=== PATIENT | male | born 1950 | race Caucasian/White ===

== ENCOUNTER 2022-08-08 09:05 | Emergency (ER) | payer OTHER ==
[2022-08-08 09:12] VITALS: TEMP 98.2; BMI 19.9
[2022-08-08 10:19] LABS: BASO % 0.7 % (0-2.0); EOS % 6.2 % (0-4.5); HEMATOCRIT 44.3 % (35.4-49); HEMOGLOBIN 14.9 GM/dL (11.7-16.9); LYMPH % 8.2 % (8-40); MCH 30.9 pg (25.7-33.7); MCHC 33.7 g/dl (32.0-35.9); MEAN CELL VOLUME 91.6 fl (80-96); MEAN PLT VOLUME 8.7 fl (7.5-11.1); MONO % 8.6 % (3.8-10.2); NEUT % 76.3 % (42.8-82.8); PLATELET COUNT 196 10^3/uL (134-434); RBC 4.84 M/mm3 (4.00-5.60); RDW 14.1 % (11.9-15.9); WHITE BLOOD COUNT 8.9 K/mm3 (4.0-10.0)
[2022-08-08 10:26] LABS: INR 1.02 (0.83-1.09); PROTHROMBIN TIME (PATIENT) 11.8 SEC (9.7-13.0)
[2022-08-08 10:29] LABS: ACTIVATED PTT 25.4 SECONDS (25.2-36.5)
[2022-08-08 10:50] LABS: CALCIUM 8.8 mg/dL (8.5-10.1)
[2022-08-08 10:51] LABS: ALBUMIN 3.3 g/dl (3.4-5.0); BLOOD UREA NITROGEN 18.1 mg/dL (7-18); MAGNESIUM 2.3 mg/dL (1.8-2.4)
[2022-08-08 10:54] LABS: CREATININE 1.2 mg/dL (0.55-1.3)
[2022-08-08 10:55] LABS: BILIRUBIN,TOTAL 0.6 mg/dL (0.2-1)
[2022-08-08 11:44] VITALS: BP 137/83; PULSE 68; RESP 21
== END 2022-08-08 12:00 | disposition home or self-care (01) ==
LOC: JER 09:05
DX: R55 Syncope and collapse (principal); Z20.822 Contact with and (suspected) exposure to COVID-19
CPT/HCPCS: 0241U-QW; 36415; 71045-TC-FY; 80053; 82550; 83735; 84484; 85025; 85610; 85730; 93005; 93010; 99285-25